=== PATIENT | female | born 1960 | race Caucasian/White ===

== ENCOUNTER 2018-11-30 09:33 | Outpatient (CLI) | payer MEDICARE, MEDICAID | END 2018-11-30 23:59 | disposition home or self-care (01) | LOC: STAR 09:33 | PROVIDERS: ATTEND Obstetrics & Gynecology Female Pelvic Medicine and Reconstructive Surgery | DX: Z01.818 Encounter for other preprocedural examination (principal); N39.3 Stress incontinence (female) (male); N81.2 Incomplete uterovaginal prolapse; R10.2 Pelvic and perineal pain | CPT/HCPCS: 93005 ==

== ENCOUNTER 2018-12-06 05:31 | Outpatient (CLI) | payer MEDICARE, MEDICAID ==
[~2018-12-06] VITALS: Ht 172.7 cm; Wt 100.9 kg
[2018-12-06 06:21] VITALS: BP 111/84
== END 2018-12-06 06:38 | disposition home or self-care (01) ==
LOC: CLISVCS 05:31 → OUT 05:31 → CLISVCS 06:38 → EDSTATUS 07:30
PROVIDERS: ATTEND Obstetrics & Gynecology Female Pelvic Medicine and Reconstructive Surgery
DX: N81.2 Incomplete uterovaginal prolapse (principal); Z53.8 Procedure and treatment not carried out for other reasons; N39.46 Mixed incontinence; E11.9 Type 2 diabetes mellitus without complications; E78.5 Hyperlipidemia, unspecified; I10 Essential (primary) hypertension; J45.909 Unspecified asthma, uncomplicated; Z79.899 Other long term (current) drug therapy; Z88.0 Allergy status to penicillin; Z88.5 Allergy status to narcotic agent; Z90.710 Acquired absence of both cervix and uterus; Z86.73 Personal history of transient ischemic attack (TIA), and cerebral infarction without residual deficits
CPT/HCPCS: 80307; J3490